=== PATIENT | male | born 1985 | race Caucasian/White ===

== ENCOUNTER 2016-06-16 17:13 | Emergency (ER) ==
--- NOTE | 2016-06-16 18:21 | PROVIDER DOCUMENTATION ---
HPI-Musculoskeletal Pain/Inj - HX OF PRESENT ILLNESS-MUSKULOSKELTAL Quality of Pain: reports: aching Severity in ED: moderate Onset/Duration: gradual Timing: still present Modifying Factors: improves with: analgesics Any recent injury?: Yes Locality of Occurance: Work Similar Symptoms Previously?: Yes Recently seen or treated by another doctor?: Yes - FALL INJURY Location of Pain/Injury: reports: lower extremity (right foot) Pain Radiation: reports: no radiation Symptoms prior to fall:: reports: none Loss of Consciousness: no loss of consciousness Injury Associated Symptoms: reports: trouble walking - LOWER EXTREMITY PAIN/INJURY Lower Extremities Pain: foot: right Context / Method of Injury: reports: other (crush) Associated Symptoms: reports: denies symptoms <Serena Saldana - Last Filed: 06/16/16 18:24> <Gordon Smith - Last Filed: 06/16/16 21:20> - GENERAL Chief Complaint: Extremity Pain Stated Complaint: RIGHT ANKLE PAIN/TURNING BLACK/POST OP 2 MONTHS Time Seen by Provider: 06/16/16 18:18 - HX OF PRESENT ILLNESS-MUSKULOSKELTAL Nature of Presenting Problem: 31 yom c/o right ankle pain. Pt had injury in December at work. Pt involved in workers comp case over the injury. Pt unable to see the surgeon to get help due to case. Pt has worse pain in the morning. (Gordon Smith) Review of Systems - Adult - REVIEW OF SYSTEMS - ADULT Constitutional: reports: no symptoms reported Eyes: reports: no symptoms reported Ears, Nose, Mouth & Throat: reports: no symptoms reported Cardiovascular: reports: no symptoms reported Respiratory: reports: no symptoms reported Gastrointestinal: reports: no symptoms reported Genitourinary: reports: no symptoms reported Musculoskeletal: reports: see HPI, joint pain, joint swelling. denies: neck pain Integumentary: reports: no symptoms reported Neurological: reports: no symptoms reported Psychiatric: reports: no symptoms reported Endocrine: reports: no symptoms reported Hematologic/Lymphatic: reports: no symptoms reported Allergic/Immunologic: reports: no symptoms reported All Other Systems: Reviewed and Negative <Serena Saldana - Last Filed: 06/16/16 18:24> Past History - Adult - PAST MEDICAL HISTORY-ADULT Review of Records: reports: Old Records Reviewed, Nursing Assessment Review, Medications Reviewed, Social history reviewed & non-contributory. Major Childhood Illnesses: reports: denies history Cardiovascular: reports: denies history Respiratory: reports: denies history Gastrointestinal: reports: denies history Obstetrical/Gynecological: reports: denies history Genitourinary: reports: denies history Musculoskeletal: reports: denies history Neurological: reports: denies history Endocrine/Immune: reports: denies history Other Conditions: reports: denies history - IMMUNIZATION STATUS Childhood Immunizations: See Nurse Assessment Flu Vaccine: See Nurse Assessment - FAMILY HISTORY Family History: reviewed, not pertinent - SOCIAL HISTORY Smoking: cigarettes, greater than 1 pack/day Provider spent 3-5 mins advising pt. on dangers of tobacco.: Discussed manners to quit use, and f/u contacts for add'l counseling. Substance Use: none/never, denies Alcohol Use Frequency: never Living Situation: family <LesSerena - Last Filed: 06/16/16 18:24> - PAST MEDICAL HISTORY-ADULT Major Childhood Illnesses: reports: denies history Neurological: reports: headaches/migraines - PRIOR SURGERIES/PROCEDURES Surgical/Procedure History: reports: none - PRIOR HOSPITALIZATIONS Prior Hospitalizations: reports: for other non-related - IMMUNIZATION STATUS Childhood Immunizations: See Nurse Assessment Flu Vaccine: See Nurse Assessment - FAMILY HISTORY Family History: reviewed, not pertinent <Gordon Smith - Last Filed: 06/16/16 21:20> Physical Exam-Injury Related - Physical Exam-Injury Related Initial Vital Signs Reviewed: Yes General Appearance: appears well, alert, mild distress, anxious Eyes: PERRL/EOMI, pink conjunctivae, fundi clear, no AV nicking Head, Ears, Nose, Mouth & Throat: normocephalic/atraumatic, moist mucous membranes, normal ENT inspection, TMs normal, pharynx normal Neck: non-tender, full range of motion, supple, normal inspection, pain with axial compression Respiratory: chest non-tender, lungs clear, normal breath sounds, no pleuratic chest pain, no respiratory distress, no accessory muscle use Cardiovascular: normal peripheral pulses, regular rate, rhythm, no edema, no gallop, no JVD, no murmur Abdominal Exam: normal bowel sounds, non tender, soft, no organomegaly, no pulsatile mass Lymphatic: no adenopathy Back Exam: normal inspection, no CVA tenderness, no vertebral tenderness Extremity: no pedal edema, normal capillary refill, pelvis stable, swelling, tenderness. negative: normal range of motion, non-tender, normal gait, normal inspection, no calf tenderness Integumentary: normal color, warm/dry Neurologic: occupational health rn II-XII nml as tested, grossly normal, no motor/sensory deficits Psych/Mental Status: normal mood/affect, normal thought content, normal thought process, oriented x 3 - Glascow Coma Score Best Eye Response ([place]eron[place]): (4) open spontaneously Best Verbal Response ([place]): (5) oriented Best Motor Response ([place]): (6) obeys commands <LesSerena - Last Filed: 06/16/16 18:24> Progress <NachoSerena wright - Last Filed: 06/16/16 18:24> <Gordon Smith - Last Filed: 06/16/16 21:20> - PLAN OF CARE/RESULTS Progress/Plan/Lab Results: Vital Signs Temp Pulse Resp BP Pulse Ox 06/16/16 19:40 97.1 F L 82 18 151/98 100 06/16/16 17:17 97.2 F L 93 H 18 164/78 100 No Known Allergies Allergy (Verified 11/02/15 22:13) Hydrocodone/Acetaminophen [[place] 10-325 Tablet] 1 each PO Q6H PRN #15 tablet Cyclobenzaprine [Flexeril] 10 mg PO TID #14 tablet 06/16/16 Hydrocodone/APAP 5 mg/325 mg [[place]-5] 1 each PO Q6H PRN PRN #14 tablet (Gordon Smith) Departure <Serena Saldana - Last Filed: 06/16/16 18:24> - Departure Time of Disposition Order: 18:37 Certified Medical Emergency: Emergent <Gordon Smith - Last Filed: 06/16/16 21:20> - Departure DIAGNOSIS: Chronic pain Qualifiers: Chronic pain type: due to trauma Qualified Code(s): G89.21 - Chronic pain due to trauma Disposition: HOME 01 Condition: Stable Additional Instructions: ED Follow Up Instructions: You have been treated by a care provider in the Emergency Department. These instructions are being provided to you so you can have an understanding of how to care for yourself upon discharge. Upon discharge from the Emergency Department, you are responsible for making arrangements for follow-up care by a physician of your choice. Take all prescribed medications as directed. Return to the Emergency Department immediately for any new or worsening symptoms. You may call the Physician Referral phone number at [phone] to obtain a list of Physicians who are taking new patients. Prescriptions: Cyclobenzaprine [Flexeril] 10 mg PO TID #14 tablet Hydrocodone/APAP 5 mg/325 mg [[place]-5] 1 each PO Q6H PRN PRN #14 tablet PRN Reason: Pain Referrals: Ralph Galindo MD [STAFF PHYSICIAN] - Forms: Return to School/Parent Work Instructions: Acetaminophen; Hydrocodone tablets or capsules, Cyclobenzaprine tablets, Chronic Pain Attestation - Scribe Verification/Attestation Scribe:: Serena Saldana Acting as Scribe for:: Gordon Smith Scribe documention review:: This chart was documented by a scribe and accurately reflects the service the provider performed and the decisions made by the provider. <Serena Saldana - Last Filed: 06/16/16 18:24> - Physician/ WILLIAM Attestation Patient care was provided by Advanced Practice Provider:: Yes Advanced Practice Provider:: Gordon Smith Advanced Practice Provider documentation review:: The Mid-level provider documentation, treatment plan and medical decision making was reviewed by the physician who agrees with all treatment and medical decision making by the [facility]. <Gordon Smith - Last Filed: 06/16/16 21:20> Physician Attestation - Physician Attestation I, the provider, attest to the following statement:: Matteo Nicole Physician documentation Attestation:: This documentation recorded by the scribe accurately reflects the service I personally performed and the decisions made by me. <Serena Saldana - Last Filed: 06/16/16 18:24>
[2016-06-16 19:41] VITALS: BP 151/98
== END 2016-06-16 19:41 | disposition home or self-care (01) ==
LOC: P.ED 17:13
DX: G89.21 Chronic pain due to trauma (principal); M25.571 Pain in right ankle and joints of right foot; R26.2 Difficulty in walking, not elsewhere classified; M25.471 Effusion, right ankle; F17.210 Nicotine dependence, cigarettes, uncomplicated; Z71.6 Tobacco abuse counseling
CPT/HCPCS: 99282

== ENCOUNTER 2016-06-22 18:45 | Emergency (ER) ==
--- NOTE | 2016-06-22 20:42 | PROVIDER DOCUMENTATION ---
HPI-Musculoskeletal Pain/Inj - GENERAL Chief Complaint: Extremity Pain Stated Complaint: RT ANKLE PAIN/SWELLING Time Seen by Provider: 06/22/16 19:45 Source: patient - HX OF PRESENT ILLNESS-MUSKULOSKELTAL Nature of Presenting Problem: 31 year old WM presents with c/o right ankle pain for months, worsening this evening after inverting his ankle on a step. pt reports he is currently in a course case with [employer] so he is unable to see his orthopedist who usually provides him with [place] for his pain. pt reports he has been bearing weight since the event this evening. pt reports new discoloration to the medial/ lateral ankle and calcaneous. Quality of Pain: reports: aching, dull Severity in ED: mild Onset/Duration: just prior to arrival Timing: still present, constant, getting worse Modifying Factors: improves with: nothing Any recent injury?: Yes Locality of Occurance: Home Similar Symptoms Previously?: Yes Recently seen or treated by another doctor?: No - LOWER EXTREMITY PAIN/INJURY Lower Extremities Pain: ankle: right Right Foot: 1 - ecchymosis 2 - ecchymosis 3 - tenderness Context / Method of Injury: reports: twisted Associated Symptoms: reports: denies symptoms. denies: loss of bladder control , loss of bowel control, lower back pain, muscle spasms, numbness in legs/feet, sensory/motor loss, tingling in legs/feet, weakness in legs/feet Review of Systems - Adult - REVIEW OF SYSTEMS - ADULT Constitutional: reports: no symptoms reported. denies: chills, fever Eyes: reports: no symptoms reported. denies: discharge, blurred vision, double vision Ears, Nose, Mouth & Throat: reports: no symptoms reported. denies: ear discharge, ear pain, nose pain, loose teeth, throat pain, throat swelling Cardiovascular: reports: no symptoms reported. denies: chest pain, palpitations , syncope Respiratory: reports: no symptoms reported. denies: chronic cough, cough, shortness of breath, wheezing Gastrointestinal: reports: no symptoms reported. denies: abdominal pain, diarrhea, nausea, vomiting Genitourinary: reports: no symptoms reported. denies: dysuria, hematuria, urgency Musculoskeletal: reports: see HPI, bone pain, joint pain, joint swelling. denies: back pain, frequent leg cramps, muscle aches, muscle weakness, neck pain Integumentary: reports: no symptoms reported. denies: hives, itching, rash, skin sores/ulcer Neurological: reports: no symptoms reported. denies: ataxia, seizure, tremors Psychiatric: reports: no symptoms reported Endocrine: reports: no symptoms reported Hematologic/Lymphatic: reports: no symptoms reported Allergic/Immunologic: reports: no symptoms reported All Other Systems: Reviewed and Negative Past History - Adult - PAST MEDICAL HISTORY-ADULT Review of Records: reports: Old Records Reviewed, Nursing Assessment Review, Medications Reviewed, Social history reviewed & non-contributory. Major Childhood Illnesses: reports: denies history Cardiovascular: reports: denies history Respiratory: reports: denies history Gastrointestinal: reports: denies history Obstetrical/Gynecological: reports: denies history Genitourinary: reports: denies history Musculoskeletal: reports: chronic pain, orthopedic injury Neurological: reports: headaches/migraines Endocrine/Immune: reports: denies history Other Conditions: reports: denies history - PRIOR SURGERIES/PROCEDURES Surgical/Procedure History: reports: none - PRIOR HOSPITALIZATIONS Prior Hospitalizations: reports: for other non-related - IMMUNIZATION STATUS Childhood Immunizations: See Nurse Assessment Flu Vaccine: See Nurse Assessment - FAMILY HISTORY Family History: reviewed, not pertinent - SOCIAL HISTORY Smoking: cigarettes Provider spent 3-5 mins advising pt. on dangers of tobacco.: Discussed manners to quit use, and f/u contacts for add'l counseling. Substance Use: none/never Alcohol Use Frequency: never Physical Exam-Injury Related - Physical Exam-Injury Related Initial Vital Signs Reviewed: Yes General Appearance: appears well, alert, no apparent distress. negative: mild distress, moderate distress, severe distress Eyes: pink conjunctivae. negative: conjuctival exudate, pale conjunctivae, sclera injected, scleral icterus, subconjunctival hemorrhage Head, Ears, Nose, Mouth & Throat: normocephalic/atraumatic, moist mucous membranes, normal ENT inspection Neck: non-tender, full range of motion, supple, normal inspection. negative: C- spine tenderness, decresed ROM, limited range of motion Respiratory: chest non-tender, lungs clear, normal breath sounds, no pleuratic chest pain, no respiratory distress, no accessory muscle use Cardiovascular: normal peripheral pulses, regular rate, rhythm Chest/Breast: deferred Peripheral Pulses: radial (R): 3+, radial (L): 3+, dorsalis-pedis (R): 3+, dorsalis-pedis (L): 3+ Abdominal Exam: normal bowel sounds, non tender, soft Male Genitalia: deferred Rectal Exam: deferred Hemoccult Exam: deferred Back Exam: normal inspection, no CVA tenderness, no vertebral tenderness. negative: CVA tenderness, decreased range of motion, swelling, vertebral tenderness Extremity: no pedal edema, no calf tenderness, normal capillary refill, swelling (right medial/lateral ankle; anterior foot), tenderness. negative: normal range of motion, non-tender, normal gait, normal inspection, deformity, erythema, inflammation, joint effusion Integumentary: normal color, warm/dry, ecchymosis Neurologic: grossly normal, no motor/sensory deficits. negative: focal weakness , motor weakness, sensory deficit Psych/Mental Status: normal mood/affect, normal thought content, normal thought process, oriented x 3 - Glascow Coma Score Best Eye Response ([place]): (4) open spontaneously Best Verbal Response ([place]): (5) oriented Best Motor Response ([place]): (6) obeys commands [place] Total: 15 Progress - PLAN OF CARE/RESULTS Progress/Plan/Lab Results: Orders Category Date Time Status ANKLE COMPLETE RIGHT [RAD] Stat Exams 06/22/16 19:19 Completed FOOT COMPLETE RIGHT [RAD] Stat Exams 06/22/16 19:53 Taken Hydrocodone/APAP 7.5 mg/325 mg [[place]-7.5] Med 06/22/16 20:49 Discontinued 1 each PO NOW ONE Vital Signs - 24 hr 06/22/16 06/22/16 19:18 21:09 Temperature 97.8 F Pulse Rate 99 H 82 Respiratory 16 16 Rate Blood Pressure 156/87 145/89 O2 Sat by Pulse 100 100 Oximetry - XRAY 1 XRAY: Right XRAY Study: Ankle, Foot Impression: Normal (no acute fractures per Dr. Awad) Departure - Departure Time of Disposition Order: 20:38 DIAGNOSIS: Right foot pain Chronic pain Qualifiers: Chronic pain type: other chronic pain Qualified Code(s): G89.29 - Other chronic pain Right ankle pain Qualifiers: Chronicity: chronic Qualified Code(s): M25.571 - Pain in right ankle and joints of right foot Disposition: HOME 01 Certified Medical Emergency: Emergent Condition: Stable Additional Instructions: Follow up with your orthopedist as scheduled. Wear the walking boot you have at home until you follow up with orthopedics. ED Follow Up Instructions: You have been treated by a care provider in the Emergency Department. These instructions are being provided to you so you can have an understanding of how to care for yourself upon discharge. Upon discharge from the Emergency Department, you are responsible for making arrangements for follow-up care by a physician of your choice. Take all prescribed medications as directed. Return to the Emergency Department immediately for any new or worsening symptoms. You may call the Physician Referral phone number at [phone] to obtain a list of Physicians who are taking new patients. Prescriptions: Cyclobenzaprine [Flexeril] 10 mg PO TID #10 tablet Hydrocodone/APAP 5 mg/325 mg [[place]-5] 1 each PO Q6H PRN PRN #5 tablet PRN Reason: right ankle pain Referrals: None,PCP [Primary Care Provider] - Instructions: Foot Sprain, Chronic Pain, Ankle Pain Attestation - Physician/ WILLIAM Attestation Patient care was provided by Advanced Practice Provider:: Yes Advanced Practice Provider:: Mukund Eduardo Advanced Practice Provider documentation review:: The Mid-level provider documentation, treatment plan and medical decision making was reviewed by the physician who agrees with all treatment and medical decision making by the MLP.
[2016-06-22] MEDS ORDERED: NORCO-7.5 PO ONE (20:49)
[2016-06-22 21:10] VITALS: BP 145/89
--- NOTE | 2016-06-23 07:50 | Diag Imaging Result Document ---
PROCEDURE NAME: ANKLE COMPLETE RIGHT - 06/22/2016 RIGHT ANKLE FOUR VIEWS: FINDINGS: There are screws through the medial malleolus. Old injury to the midshaft of the fibula. No acute fracture or dislocation. IMPRESSION: No acute bony injury.
--- NOTE | 2016-06-23 09:16 | Diag Imaging Result Document ---
PROCEDURE NAME: FOOT COMPLETE RIGHT - 06/22/2016 RIGHT FOOT, THREE VIEWS: FINDINGS: No fracture. No dislocation. No bone erosions. No subluxation. IMPRESSION: No acute abnormality.
== END 2016-06-22 21:10 | disposition home or self-care (01) ==
LOC: ED 18:45
DX: M79.671 Pain in right foot (principal); M25.571 Pain in right ankle and joints of right foot; G89.29 Other chronic pain; M25.472 Effusion, left ankle; W22.8XXA Striking against or struck by other objects, initial encounter
CPT/HCPCS: 99283